=== PATIENT | male | born 1975 | race Caucasian/White ===

== ENCOUNTER 2020-10-09 05:54 | Emergency (ER) | payer BC, SELFPAY ==
[2020-10-09 05:56] VITALS: BP 154/94; PULSE 83; RESP 18; TEMP 36.3; O2SAT 99
[2020-10-09 06:02] VITALS: BP 154/84; PULSE 84; RESP 18; TEMP 37.1; O2SAT 100
--- NOTE | 2020-10-09 06:14 | ED.GENADULT ---
HPI - General Adult General Chief complaint: Unspecified Stated complaint: sunburn Time Seen by Provider: 10/09/20 06:07 History of Present Illness HPI narrative: Patient 45-year-old gentleman who presents the emergency department with chief complaint of sunburn. Patient reports he was outside applied sunscreen twice and noticed that he developed blisters on his upper arms. Patient states that he has multiple small blisters from the area of sunburn reports that a 7 no shortness of breath no chest pain no abdominal pain Related Data Home Medications Medication Instructions Recorded Confirmed No Home Medications 10/09/20 10/09/20 Allergies Allergy/AdvReac Type Severity Reaction Status Date / Time NSAIDS (Non-Steroidal Allergy Unknown Hives Unverified 10/09/20 06:05 Anti-Inflamma Review of Systems Review of Systems: Narrative: A 10 system review of systems was completed on the patient and is negative except for what is stated in the HPI. Nursing and ancillary documentation was reviewed. [facility] Social History Social History Smoking status: Former smoker Smoking end date: 03/26/13 Alcohol intake: current Exam Narrative: Exam Narrative: GENERAL: Well-appearing, well-nourished, and in no acute distress. HEAD: Normocephalic, atraumatic. EYES: PERRLA and EOMI. ENT: Nares clear, no rhinorrhea or epistaxis. Mucous membranes moist. NECK: Supple. CHEST: Clear to auscultation. No respiratory distress. HEART: Regular rate and rhythm. No murmur heard. Normal peripheral pulses. ABDOMEN: Soft, nontender, nondistended, normal active bowel sounds. EXTREMITIES: Normal range of motion. No edema. SKIN: Warm, dry, no rash. There is a second-degree sunburn present in the upper shoulders NEURO: No focal deficits. Alert and oriented x3. PSYCH: Normal mood and affect. Course Vital Signs Vital signs: Vital Signs Temperature 36.3 C L 10/09/20 05:56 Pulse Rate 83 10/09/20 05:56 Respiratory Rate 18 10/09/20 05:56 Blood Pressure 154/94 H 10/09/20 05:56 Pulse Oximetry 99 10/09/20 05:56 Temperature 37.1 C 10/09/20 06:02 Pulse Rate 84 10/09/20 06:02 Respiratory Rate 18 10/09/20 06:02 Blood Pressure 154/84 H 10/09/20 06:02 Pulse Oximetry 100 10/09/20 06:02 Medical Decision Making Vital Signs Vital Signs: Vital Signs Temperature 36.3 C L 10/09/20 05:56 Pulse Rate 83 10/09/20 05:56 Respiratory Rate 18 10/09/20 05:56 Blood Pressure 154/94 H 10/09/20 05:56 Pulse Oximetry 99 10/09/20 05:56 Temperature 37.1 C 10/09/20 06:02 Pulse Rate 84 10/09/20 06:02 Respiratory Rate 18 10/09/20 06:02 Blood Pressure 154/84 H 10/09/20 06:02 Pulse Oximetry 100 10/09/20 06:02 Discharge Plan Discharge Clinical Impression: Sunburn Patient Disposition: Home, Self-Care Condition: Stable Instructions: Antibiotic Form, Sunburn (ED) Prescriptions: No Action No Home Medications RF: 0 Follow-up/Referrals: Bill Campos MD [Primary Care Provider] - Time of Disposition: 06:16
== END 2020-10-09 06:44 | disposition home or self-care (01) ==
LOC: ANHED 06:20
PROVIDERS: Emergency Provider Emergency Medicine; PCP Family Medicine
DX: L55.1 Sunburn of second degree (principal); Z87.891 Personal history of nicotine dependence
CPT/HCPCS: 99281